=== PATIENT | female | born 1945 | race African-American/Black ===

== ENCOUNTER 2024-05-25 11:34 | Emergency (ER) | payer MEDICARE, MEDICAID ==
[~2024-05-25] VITALS: Ht 157.5 cm; Wt 72.0 kg
[2024-05-25 11:36] VITALS: BP 162/97; PULSE 104; RESP 18; TEMP 98.2; O2SAT 100
[2024-05-25] MEDS: ACETAMINOPHEN 325MG TABLET PO ONE (12:23)
[2024-05-25] MEDS ORDERED: TOPUD PO (13:46)
== END 2024-05-25 14:10 | disposition home or self-care (01) ==
LOC: ER 11:34
DX: S00.01XA Abrasion of scalp, initial encounter (principal); R51.9 Headache, unspecified; E11.9 Type 2 diabetes mellitus without complications; I10 Essential (primary) hypertension; Z88.8 Allergy status to other drugs, medicaments and biological substances; W01.0XXA Fall on same level from slipping, tripping and stumbling without subsequent striking against object, initial encounter; Y93.9 Activity, unspecified; Y92.89 Other specified places as the place of occurrence of the external cause; Y99.8 Other external cause status
CPT/HCPCS: 73502; 99284